=== PATIENT | female | born 1950 | race Caucasian/White ===

== ENCOUNTER 2019-10-09 11:44 | Outpatient (RCR) | payer MEDICARE, OTHER ==
[~2019-10-09 11:44] MED LIST: MUPIROCIN 2% OINT 22 GM TUBE ONE
[2019-10-09] MEDS ORDERED: LIDOCAINE VISC 2% SOLN 15 ML UDC ONE (13:51)
[2019-10-09] MEDS ORDERED: MUPIROCIN 2% OINT 22 GM TUBE ONE (13:51)
== END 2019-10-29 ==
LOC: WCC 11:44
PROVIDERS: ATTEND Internal Medicine Infectious Disease
DX: L89.012 Pressure ulcer of right elbow, stage 2 (principal); L89.212 Pressure ulcer of right hip, stage 2; L89.312 Pressure ulcer of right buttock, stage 2; L89.892 Pressure ulcer of other site, stage 2; L89.226 Pressure-induced deep tissue damage of left hip; L89.896 Pressure-induced deep tissue damage of other site; L89.010 Pressure ulcer of right elbow, unstageable; L89.310 Pressure ulcer of right buttock, unstageable; L89.620 Pressure ulcer of left heel, unstageable; L89.610 Pressure ulcer of right heel, unstageable; L89.899 Pressure ulcer of other site, unspecified stage; F03.90 Unspecified dementia, unspecified severity, without behavioral disturbance, psychotic disturbance, mood disturbance, and anxiety; Z74.01 Bed confinement status